=== PATIENT | female | born 1955 | race Caucasian/White ===

== ENCOUNTER 2024-01-13 12:27 | Emergency (ER) | payer MEDICARE, OTHER ==
[~2024-01-13] VITALS: Ht 165.1 cm; Wt 58.7 kg
[2024-01-13 12:28] VITALS: BP 154/84; TEMP 98; O2SAT 97
[2024-01-13] MEDS: ONDANSETRON 4MG ORAL DISINTEGRATING TAB PO ONE (14:00)
== END 2024-01-13 14:28 | disposition home or self-care (01) ==
LOC: M ED 12:27
DX: R04.0 Epistaxis (principal); I10 Essential (primary) hypertension